=== PATIENT | male | born 1935 | race Caucasian/White ===

== ENCOUNTER → 2016-07-08 | Outpatient (CLI) | payer MEDICARE, BC ==
[2016-07-08 15:53] LABS: ALBUMIN 3.4 gm/dL (3.5-5.0); TOTAL PROTEIN 7.2 g/dL (6.0-8.4)
[2016-07-08 15:54] LABS: TOTAL BILIRUBIN 0.4 mg/dL (0.0-1.5)
== END | disposition disaster alternative care site (69) ==
LOC: LCNC 15:23
PROVIDERS: Internal Medicine Interventional Cardiology
DX: Z51.81 Encounter for therapeutic drug level monitoring (principal); Z79.899 Other long term (current) drug therapy